=== PATIENT | female | born 1990 | race Caucasian/White ===

== ENCOUNTER 2016-12-29 20:55 | Emergency (ER) | payer OTHER ==
[2016-12-29] MEDS ORDERED: ONDANSETRON 4 MG TAB.RAPDIS PO ONE (21:26)
[2016-12-29] MEDS ORDERED: DIPHENHYDRAMINE HCL 25 MG CAPSULE PO ONE (21:27)
--- NOTE | 2016-12-29 21:33 | ER Document Report ---
ED Medical Screen (RME) - General Chief Complaint: Pelvic Pain Stated Complaint: POSSIBLE MEDICATION WITHDRAWAL Mode of Arrival: Ambulatory Information source: Patient Notes: 26-year-old female presents to the emergency department complaining of opiate withdrawal symptoms. Patient reports was on Suboxone treatment and last dose was yesterday. Reports n/v, generalized weakness, and chills. I have greeted and performed a rapid initial assessment of this patient. A comprehensive ED assessment and evaluation of the patient, analysis of test results and completion of the medical decision making process will be conducted by additional ED providers. TRAVEL OUTSIDE OF THE [place] IN LAST 30 DAYS: No - Related Data Allergies/Adverse Reactions: No Known Allergies Allergy (Verified 12/29/16 21:27) Past Medical History - Social History Chew tobacco use (# tins/day): No Frequency of alcohol use: None Drug Abuse: None Renal/ Medical History: Denies: Hx Peritoneal Dialysis Physical Exam - Vital signs Vitals: Temp Pulse Resp BP Pulse Ox 98.3 F 85 18 125/81 100 12/29/16 21:23 12/29/16 21:23 12/29/16 21:23 12/29/16 21:23 12/29/16 21:23 - General General appearance: Appears well, Alert In distress: None - Respiratory Respiratory status: No respiratory distress Course - Vital Signs Vital signs: Temp Pulse Resp BP Pulse Ox 98.3 F 85 18 125/81 100 12/29/16 21:23 12/29/16 21:23 12/29/16 21:23 12/29/16 21:23 12/29/16 21:23
[2016-12-29] MEDS ORDERED: CLONIDINE 0.1 MG/24 HR PATCH.TDWK TD ONE (22:49)
[2016-12-29] MEDS ORDERED: PROMETHAZINE HCL INJ 25 MG/1 ML VIAL IM ONE (22:49)
[2016-12-29] MEDS ORDERED: GABAPENTIN 300 MG CAPSULE PO ONE (22:49)
--- NOTE | 2016-12-29 22:53 | ER Document Report ---
ED General - General Chief Complaint: Pelvic Pain Stated Complaint: POSSIBLE MEDICATION WITHDRAWAL Time seen by provider: 22:45 Mode of Arrival: Ambulatory Notes: Patient is a 26-year-old female that comes emergency department for chief complaint of medication withdrawals, she states that she is having chills, nausea, she has vomited, she has had loose stools, and she feels generally run down. She states she last had Suboxone 4 mg yesterday, she was prescribed 16 mg daily by her provider in [place], she states she just moved here with her family. Patient denies any fever, denies any daily medications otherwise, denies any other symptoms currently. She states that she wants to stop taking Suboxone and is looking for a way to get through the withdrawals without taking opiates. TRAVEL OUTSIDE OF THE [place] IN LAST 30 DAYS: No - Related Data Allergies/Adverse Reactions: No Known Allergies Allergy (Verified 12/29/16 21:27) Past Medical History - General Information source: Patient - Social History Smoking Status: Never Smoker Chew tobacco use (# tins/day): No Frequency of alcohol use: None Drug Abuse: None Lives with: Family Family History: Reviewed & Not Pertinent Patient has suicidal ideation: No Patient has homicidal ideation: No - Medical History Medical History: Negative Renal/ Medical History: Denies: Hx Peritoneal Dialysis Surgical Hx: Negative - Immunizations Immunizations up to date: Yes Hx Diphtheria, Pertussis, Tetanus Vaccination: Yes Review of Systems - Review of Systems Constitutional: See HPI EENT: No symptoms reported Cardiovascular: No symptoms reported Respiratory: No symptoms reported Gastrointestinal: See HPI Genitourinary: No symptoms reported Female Genitourinary: No symptoms reported Musculoskeletal: No symptoms reported Skin: No symptoms reported Hematologic/Lymphatic: No symptoms reported Neurological/Psychological: No symptoms reported Physical Exam - Vital signs Vitals: Temp Pulse Resp BP Pulse Ox 98.3 F 85 18 125/81 100 12/29/16 21:23 12/29/16 21:23 12/29/16 21:23 12/29/16 21:23 12/29/16 21:23 Interpretation: Normal - General General appearance: Alert In distress: None - Patient appears slightly pale and tired but is in no distress, is alert and appropriate - HEENT Head: Normocephalic, Atraumatic Eyes: Normal Conjunctiva: Normal Extraocular movements intact: Yes Eyelashes: Normal Pupils: PERRL Sinus: Normal Nasal: Normal Mouth/Lips: Normal Mucous membranes: Normal Pharynx: Normal Neck: Normal - Respiratory Respiratory status: No respiratory distress Chest status: Nontender Breath sounds: Normal. No: Decreased air movement, Wheezing Chest palpation: Normal - Cardiovascular Rhythm: Regular. No: Tachycardia Heart sounds: Normal auscultation, S1 appreciated, S2 appreciated Murmur: No - Abdominal Inspection: Normal Distension: No distension Bowel sounds: Normal Tenderness: Nontender - No abdominal tenderness noted on my examination, soft and benign. No: Tender, Guarding Organomegaly: No organomegaly - Back Back: Normal, Nontender. No: Tender - Extremities General upper extremity: Normal inspection, Nontender, Normal color, Normal ROM , Normal temperature General lower extremity: Normal inspection, Nontender, Normal color, Normal ROM , Normal temperature, Normal weight bearing. No: Radha's sign - Neurological Neuro grossly intact: Yes Cognition: Normal Orientation: AAOx4 Janiya Coma Scale Eye Opening: Spontaneous Janiya Coma Scale Verbal: Oriented Janiya Coma Scale Motor: Obeys Commands Cross Anchor Coma Scale Total: 15 Speech: Normal Motor strength normal: LUE, RUE, LLE, RLE Sensory: Normal - Psychological Associated symptoms: Normal affect, Normal mood - Skin Skin Temperature: Warm Skin Moisture: Dry Skin Color: Normal Course - Re-evaluation Re-evalutation: No fever, no tachycardia, soft abdomen. After clonidine patch, Neurontin, Phenergan, patient states she feels much better, patient skin color is improved , patient smiling, patient tolerated fluids by mouth, patient appears very satisfied, states she is ready to go home, requests similar medications to what she was given tonight at home so she can complete her withdrawal process. Patient declines referral to either detox for pain management, requests primary care referral. Discussed follow-up and return precautions. Patient states understanding and agreement. - Vital Signs Vital signs: Temp Pulse Resp BP Pulse Ox 98.8 F 89 18 126/81 H 98 12/30/16 02:31 12/30/16 02:31 12/30/16 02:31 12/30/16 02:31 12/30/16 02:31 Discharge - Discharge Clinical Impression: Nausea vomiting and diarrhea, Opioid withdrawal Condition: Stable Disposition: HOME, SELF-CARE Additional Instructions: Your symptoms are consistent with medication withdrawal. Take the Phenergan for nausea, take the Neurontin as prescribed, leave the patch on for 3-5 days. Cover the patch when you shower. Follow-up with primary care (see referral). Return to emergency department for any concerning symptoms Prescriptions: Gabapentin 2 cap PO BID PRN #30 capsule PRN Reason: Promethazine HCl [Phenergan 25 mg Tablet] 1 - 2 tab PO Q6H PRN #20 tablet PRN Reason: Referrals: LONDON EPPERSON MD [ACTIVE STAFF] - Follow up as needed RO ECKERT MD [ACTIVE STAFF] - Follow up as needed
[2016-12-30] MEDS ORDERED: GABAPENTIN 300 MG CAPSULE ONE (00:42)
[2016-12-30] MEDS ORDERED: PROMETHAZINE HCL INJ 25 MG/1 ML VIAL ONE (00:43)
[2016-12-30 02:37] VITALS: BP 126/81
== END 2016-12-30 02:35 | disposition home or self-care (01) ==
LOC: ER 20:55
DX: F11.23 Opioid dependence with withdrawal (principal); R10.2 Pelvic and perineal pain; R68.83 Chills (without fever); R11.2 Nausea with vomiting, unspecified; R19.7 Diarrhea, unspecified
CPT/HCPCS: 99284; 96372; J2550; J3490

== ENCOUNTER 2017-08-02 22:57 | Emergency (ER) | payer OTHER ==
[2017-08-02] MEDS ORDERED: IBUPROFEN 800 MG TABLET PO ONE (23:27)
[2017-08-02] MEDS ORDERED: LIDOCAINE 2% VISCOUS SOLN 20 ML UDCUP PO ONE (23:52)
[2017-08-02] MEDS ORDERED: PENICILLIN G BENZATHINE 1.2 MILLION UNIT/2 ML DISP.SYRIN IM ONE (23:52)
[2017-08-02] MEDS ORDERED: HYDROCODONE/ACETAMINOPHEN 5-325 MG 6 TAB/DSPK PO PRN (23:53)
--- NOTE | 2017-08-02 23:56 | ER Document Report ---
HPI - HPI Patient complains to provider of: Toe injury, sore throat Onset: Other - Toe injury 10 days ago, sore throat today Onset/Duration: Persistent Quality of pain: Achy Pain Level: 3 Context: Patient states that her pushed a large toy car towards her and she accidentally kicked it with her left foot 10 days ago. Patient states that initially the area is very tender, swollen and bruised. Patient complains of continued pain today after her child hit it with a scooter today. Patient also reports sore throat that started today. Patient denies any fever. Associated Symptoms: Sore throat, Other - Foot pain. denies: Nonproductive cough, Productive cough, Fever Exacerbated by: Movement, Walking Relieved by: Denies Similar symptoms previously: No Recently seen / treated by doctor: No - ROS ROS below otherwise negative: Yes Systems Reviewed and Negative: Yes All other systems reviewed and negative - CONSTITUTIONAL Constitutional: DENIES: Fever - EENT EENT: REPORTS: Sore Throat - CARDIOVASCULAR Cardiovascular: DENIES: Chest pain - GASTROINTESTINAL Gastrointestinal: DENIES: Nausea, Patient vomiting - REPRODUCTIVE LMP: 07/04/2017 - MUSCULOSKELETAL Musculoskeletal: REPORTS: Extremity pain, Swelling - DERM Skin Color: Ecchymosis Skin Problems: None Past Medical History - General Information source: Patient - Social History Smoking Status: Never Smoker Frequency of alcohol use: None Drug Abuse: None Occupation: None Lives with: Family Family History: Reviewed & Not Pertinent Patient has suicidal ideation: No Patient has homicidal ideation: No - Medical History Medical History: Negative Renal/ Medical History: Denies: Hx Peritoneal Dialysis Past Surgical History: Reports: Hx Cholecystectomy - Immunizations Immunizations up to date: Yes Hx Diphtheria, Pertussis, Tetanus Vaccination: Yes Vertical Provider Document - CONSTITUTIONAL Agree With Documented VS: Yes Exam Limitations: No Limitations General Appearance: WD/WN, No Apparent Distress - INFECTION CONTROL TRAVEL OUTSIDE OF THE [place] IN LAST 30 DAYS: No - HEENT HEENT: Atraumatic, Normocephalic, Pharyngeal Tenderness, Pharyngeal Erythema. negative: Pharyngeal Exudate, Tympanic Membrane Red, Tympanic Membrane Bulging - NECK Neck: Lymphadenopathy-Left, Lymphadenopathy-Right - RESPIRATORY Respiratory: Breath Sounds Normal, No Respiratory Distress O2 Sat by Pulse Oximetry: 100 - CARDIOVASCULAR Cardiovascular: Regular Rate, Regular Rhythm, No Murmur - BACK Back: Normal Inspection - MUSCULOSKELETAL/EXTREMETIES Musculoskeletal/Extremeties: MAEW, Tender - Left third toe tenderness with mild ecchymosis, no deformity, Edema, Eccymosis - NEURO Level of Consciousness: Awake, Alert, Appropriate Motor/Sensory: No Motor Deficit - DERM Integumentary: Warm, Dry, No Rash Course - Re-evaluation Re-evalutation: 08/02/17 23:54 The patient has been informed that they may have pre-hypertension or hypertension based on a blood pressure reading in the emergency department. I recommend that patient call the primary care provider listed on their discharge instructions or a physician of their choice by this week to arrange follow-up for further evaluation of possible pre-hypertension or hypertension. - Vital Signs Vital signs: Temp Pulse Resp BP Pulse Ox 99.0 F 89 16 141/91 H 100 08/02/17 23:01 08/02/17 23:01 08/02/17 23:01 08/02/17 23:01 08/02/17 23:01 - Laboratory Laboratory results interpreted by me: 08/02/17 23:54 Labs- Entire Visit 08/02/17 23:21 Group A Strep Rapid POSITIVE - Diagnostic Test Radiology reviewed: Pending, Image reviewed Procedures - Immobilization Left 3rd digit Pre-Proc Neuro Vasc Exam: Normal Immobilizer type: Post-op shoe Performed by: RN Post-Proc Neuro Vasc Exam: Normal Alignment checked and good: Yes Discharge - Discharge Clinical Impression: Elevated blood pressure reading, Strep throat Toe fracture, left Qualifiers: Encounter type: initial encounter Toe: lesser toe Fracture type: closed Phalanx : proximal Fracture alignment: nondisplaced Qualified Code(s): S92.515A - Nondisplaced fracture of proximal phalanx of left lesser toe(s), initial encounter for closed fracture Condition: Stable Disposition: HOME, SELF-CARE Instructions: Antibiotic Shot ([facility]), Ronn Taping (toes) ([facility]), Oral Narcotic Medication ([facility]), Post-Op Shoe ([facility]), Strep Throat ([facility]), Fractured Toe ([facility]) Additional Instructions: Return immediately for any new or worsening symptoms Followup with your primary care provider, call tomorrow to make a followup appointment Follow-up with orthopedic doctor for further evaluation of toe fracture Prescriptions: Naproxen [Naprosyn 250 Nmg Tablet] 1 tab PO BID #14 tablet Forms: Elevated Blood Pressure Referrals: [facility] [Provider Group] - Follow up in 3-5 days
--- NOTE | 2017-08-03 00:22 | RADIOLOGY REPORT (SQ) ---
EXAM DESCRIPTION: TOE LEFT COMPLETED DATE/TIME: 08/02/2017 11:51 pm REASON FOR STUDY: L 3rd toe, toy struck foot COMPARISON: None. NUMBER OF VIEWS: Two views. TECHNIQUE: AP view of the left foot and AP view of the left 3rd toe. LIMITATIONS: None. FINDINGS: MINERALIZATION: Normal. BONES: There is a mildly comminuted, minimally displaced fracture at the head of the 3rd proximal pha lanx with the fracture line extending into the proximal interphalangeal joint. SOFT TISSUES: Mild soft tissue swelling at the fracture site. No radiopaque foreign body. IMPRESSION: Mildly comminuted, minimally displaced intra-articular fracture at the 3rd proximal phal anx. COMMENT: SITE OF TRAUMA/COMPLAINT MARKED/STAMP COMPLETED: YES. TECHNICAL DOCUMENTATION: JOB ID: [id number] 2010 [employer]- All Rights Reserved
[2017-08-03 00:31] VITALS: BP 144/86
== END 2017-08-03 00:31 | disposition home or self-care (01) ==
LOC: ER 22:57
DX: J02.0 Streptococcal pharyngitis (principal); S92.515A Nondisplaced fracture of proximal phalanx of left lesser toe(s), initial encounter for closed fracture; W22.09XA Striking against other stationary object, initial encounter; R03.0 Elevated blood-pressure reading, without diagnosis of hypertension; Z90.49 Acquired absence of other specified parts of digestive tract
CPT/HCPCS: 99283; 96372; 87880; 73660; J3490; J0561